=== PATIENT | female | born 1940 | race Two or more races ===

== ENCOUNTER 2023-07-11 10:53 | Emergency (ER) | payer OTHER ==
[~2023-07-11] VITALS: Ht 154.9 cm; Wt 62.6 kg
[2023-07-11] MEDS ORDERED: OMEPRAZOLE-BIC1 EAC1 PO (11:00)
[2023-07-11] MEDS ORDERED: GLUMETZA500 MG PO (11:00)
[2023-07-11] MEDS ORDERED: HORIZANT300 MG PO (11:00)
[2023-07-11] MEDS ORDERED: AVAPRO300 MG PO (11:01)
[2023-07-11] MEDS ORDERED: TOPROL XL25 M1 PO (11:01)
[2023-07-11] MEDS ORDERED: ELIQUIS5 MG PO (11:01)
[2023-07-11] MEDS ORDERED: MONTELUKAST SODI4 M1 PO (11:01)
[2023-07-11] MEDS ORDERED: AMLODIPINE-OLM1 EAC2 PO (11:01)
[2023-07-11] MEDS ORDERED: NASACORT16.9 ML NASAL (11:02)
[2023-07-11] MEDS ORDERED: EZALLOR SPRINKL10 MG PO (11:02)
[2023-07-11 11:48] LABS: HEMATOCRIT 36.1 % (36.0-45.00); HEMOGLOBIN 12.3 g/dL (12.0-15.00); MEAN CELL VOLUME 89.2 fL (80.00-100.00); MEAN CORPUSCULAR HEMOGLOBIN 30.5 pg (27.00-32.0); MEAN CORPUSCULAR HGB CONC 34.2 g/dl (32.0-36.0); PLATELET COUNT 215 K/uL (150-450); RED BLOOD COUNT 4.04 M/uL (4.00-6.00); RED CELL DISTRIBUTION WIDTH 13.1 % (11.5-14.5)
[2023-07-11 11:57] LABS: URINE APPEARANCE Cloudy; URINE BILIRRUBIN Negative (NEGATIVE); URINE BLOOD Negative; URINE COLOR Yellow; URINE GLUCOSE Negative (NEGATIVE); URINE LEUKOCYTE Large; URINE NITRATE Negative; URINE PROTEIN Negative (NEGATIVE); URINE UROBILINOGEN 0.2 E.U./dl
[2023-07-11 12:02] LABS: URINE EPITHELIAL CELLS 4.1 uL (0.0-38.8); URINE RBC 3.4 uL (0.0-20.8); URINE WBC 1650.3 uL (0.0-23.2)
[2023-07-11 12:16] LABS: URINE BACTERIA > 9821.5 uL (0.0-1933)
[2023-07-11 12:40] LABS: CALCIUM 10.3 mg/dL (8.5-10.1); CREATININE SERUM 1.49 mg/dL (0.55-1.02); GFR 33.59; POTASSIUM 5.58 mEq/L (3.5-5.1)
[2023-07-11] MEDS ORDERED: NITROFURANTOIN100 MG PO (17:42)
== END 2023-07-11 18:22 | disposition home or self-care (01) ==
LOC: ER 10:53
PROVIDERS: Emergency Medicine
DX: N39.0 Urinary tract infection, site not specified (principal); K57.90 Diverticulosis of intestine, part unspecified, without perforation or abscess without bleeding; Z88.2 Allergy status to sulfonamides; Z88.8 Allergy status to other drugs, medicaments and biological substances
CPT/HCPCS: 36415; 74176; 96365; 99284; J0696; J3490